=== PATIENT | female | born 1995 | race Caucasian/White ===

== ENCOUNTER 2019-10-01 06:11 | Outpatient (CLI) | payer BC, OTHER ==
[2019-10-01 10:37] LABS: #Basophils 0.1 thou/uL (0.0-0.2); #Eosinphils 0.1 thou/uL (0.0-0.7); #Lymphocytes 1.1 thou/uL (1.20-3.40); #Monocytes 0.3 thou/uL (0.11-0.59); #Neutrophils 4.6 thou/uL (1.40-6.50); %Basophils 0.9 % (0.0-1.0); %Lymphocytes 18.5 % (21.0-51.0); %Monocytes 5.6 % (0.0-10.0); %Neutrophils 74.1 % (42.0-75.0); Hemoglobin 14.6 g/dL (12.0-16.0); Mean Corpuscular HGB CONC 32.3 g/dL (32.0-36.0); Mean Corpuscular Hemoglobin 30.9 pg (27.0-31.0); Mean Corpuscular Volume 95.5 fL (78.0-98.0); Mean Platelet Volume 8.2 fL (7.4-10.4); Platelet Count 233 thou/uL (130-400); RBC Distribution Width 11.4 % (11.5-14.5); Red Blood Cell (RBC) Count 4.73 mill/uL (4.20-5.40); White Blood Cell (WBC) Count 6.1 thou/uL (4.8-10.8)
[2019-10-01 10:50] LABS: BHCG - Serum Negative (NEGATIVE); Pregs Control Background? CLEAR/WHITE (CLR/WHITE); Pregs Control Bar Appear? YES (CONTROL BAR)
[2019-10-01 11:03] LABS: Anion Gap 14 mmol/L (10-20); BUN (Urea Nitrogen) 11 mg/dL (7.0-18.7); Calc. Creatinine Clearance 0 mL/min (70-130); Calcium 9.4 mg/dL (7.8-10.44); Carbon Dioxide 24 mmol/L (22-29); Chloride 106 mmol/L (98-107); Estimated GFR-MDRD 89; Glucose 86 mg/dL (70-105); Potassium 4.5 mmol/L (3.5-5.1); Sodium 139 mmol/L (136-145)
[2019-10-01 19:38] LABS: SARS-CoV-2 MS2 Positive; SARS-CoV-2 N Gene Negative; SARS-CoV-2 S Gene Negative; SARS-CoV-2 orf1ab Negative
== END 2019-10-01 06:12 | disposition home or self-care (01) ==
LOC: LABBT 06:11
PROVIDERS: ATTEND Specialist
DX: Z01.812 Encounter for preprocedural laboratory examination (principal); Z11.59 Encounter for screening for other viral diseases; K42.9 Umbilical hernia without obstruction or gangrene
CPT/HCPCS: 80048; 84703; 85025; 87635; U0003

== ENCOUNTER 2019-10-05 06:49 | Day surgery (SDC) | payer BC, OTHER ==
[2019-10-01 09:12] VITALS: BMI 26.7
[2019-10-05] MEDS ORDERED: Levofloxacin 500 mg/D5W 100 ml Premix Bag ONE (08:12)
[2019-10-05] MEDS ORDERED: Acetaminophen 500 MG TAB ONE (08:13)
[2019-10-05] MEDS ORDERED: Ketorolac Tromethamine 30 MG/ML VIAL ONE (08:13)
[2019-10-05] MEDS ORDERED: Fentanyl 100 MCG/2 ML VIAL ONE (08:47)
[2019-10-05] MEDS ORDERED: Midazolam HCl 2 mg/2 ml Vial ONE (08:47)
[2019-10-05] MEDS ORDERED: Lidocaine 1% w/Epinephrine 1:100K 20 ML VIAL ONE (08:53)
[2019-10-05] MEDS ORDERED: Bupivacaine 0.25% HCL 30 ML VIAL ONE (08:53)
[2019-10-05] MEDS ORDERED: Ondansetron PF 4 MG/2 ML Vial ONE (10:33)
[2019-10-05] MEDS ORDERED: Lidocaine 1% PF 5 ML VIAL ONE (10:33)
[2019-10-05] MEDS ORDERED: PROPOFOL 200 MG/20 ML VIAL ONE (10:33)
--- NOTE | 2019-10-05 13:03 | OP ---
DATE OF PROCEDURE: 10/05/2019 PREOPERATIVE DIAGNOSIS: Supraumbilical ventral hernia. POSTOPERATIVE DIAGNOSIS: Supraumbilical ventral hernia. PROCEDURE PERFORMED: Repair of supraumbilical ventral hernia. ANESTHESIA: General endotracheal. INDICATIONS FOR PROCEDURE: The patient is a 24-year-old white female. She presents with a bulging mass superior to her umbilicus. This has been present for quite a while, but has gotten larger and more symptomatic. DESCRIPTION OF PROCEDURE: Informed consent was obtained. The patient was taken to the operating room, where general endotracheal anesthesia was obtained with the patient in supine position. Abdomen was prepped with ChloraPrep and draped in sterile fashion. Local anesthetic was infiltrated using a mixture of 1% lidocaine with epinephrine and 0.25% Marcaine. A curvilinear infraumbilical incision was created. Dissection was carried through skin and subcutaneous tissue down to the fascia. The fascia was cleared and the umbilicus was elevated off the underlying fascia. The hernia was then encountered. This was carefully dissected circumferentially. The defect was little over 2 cm in diameter. I dissected the fascia on the anterior aspect sharply. Hernia contents were partially excised and the remainder reduced. Hemostasis was obtained with electrocautery. A preperitoneal dissection was carried out digitally to clear the underside of the fascia. A 6.3-cm Ventralex mesh patch was obtained. It was placed in the preperitoneal space. The tails were secured to the anterior aspect of the fascia superiorly and inferiorly with single interrupted sutures of 0 Prolene. Lateral aspects of the defect were closed with single interrupted sutures of 0 Prolene, incorporating bites of the anterior leaflet of the mesh. The umbilicus was secured down to the fascia inferior to the hernia defect using 2 interrupted sutures of 3-0 Vicryl. Remainder of the wound closed in layers of 3-0 and 4- 0 Monocryl. Dermabond was placed externally. A compression dressing was then constructed using cotton balls with Tegaderm. There were no complications. Blood loss was negligible. The patient tolerated the procedure well and was taken to recovery room in stable condition. Job ID: [id number]
== END 2019-10-05 12:10 | disposition home or self-care (01) ==
LOC: SDC 06:49
PROVIDERS: ATTEND Specialist
PROC: 0WUF0JZ Supplement Abdominal Wall with Synthetic Substitute, Open Approach (ICD-10-PCS; principal; 2019-10-05)
DX: K43.9 Ventral hernia without obstruction or gangrene (principal); Z79.899 Other long term (current) drug therapy; Z88.0 Allergy status to penicillin; Z88.1 Allergy status to other antibiotic agents
CPT/HCPCS: 93005; 93010; J1885; J1956; J2001; J2250; J2405; J2704; J3010; S0020